=== PATIENT | female | born 1975 | race African-American/Black ===

== ENCOUNTER 2016-11-02 16:01 | Emergency (ER) | payer SELFPAY ==
[~2016-11-02] VITALS: Ht 165.1 cm; Wt 81.1 kg
[2016-11-02 16:50] LABS: HEMATOCRIT 36.6 % (36.0-46.0); MCH 29.3 PG (29.0-34.0); MCHC 32.5 G/DL (30.0-36.0); MCV 90.1 FL (83-99); MEAN PLAT.VOLUME 10.9 uM^3 (9.5-12.4); PLATELET COUNT 277 K/uL (156-360); RBC DIS.WIDTH-CV 12.7 % (11.8-14.6); RED BLOOD COUNT 4.06 M/uL (3.80-5.20); WHITE BLOOD COUNT 10.5 K/uL (4.1-10.2)
[2016-11-02 16:59] LABS: CHLORIDE 106 mEq/L (99-109); POTASSIUM 4.1 mEq/L (3.7-5.4); SODIUM 136 mEq/L (136-147)
[2016-11-02 17:01] LABS: GLUCOSE 94 mg/dL (70-99)
[2016-11-02 17:02] LABS: ANION GAP 10 MEQ/L (2-14)
[2016-11-02 17:03] LABS: TOTAL BILIRUBIN 0.5 mg/dL (0.0-1.0)
[2016-11-02 17:04] LABS: ALKALINE PHOSPHATASE 49 IU/L (3-129)
[2016-11-02 17:06] LABS: UREA NITROGEN (BUN) 4 mg/dL (9-23)
[2016-11-02 17:08] LABS: LIPASE 17 U/L (1.0-51.0)
[2016-11-02 17:14] LABS: GFR ESTIMATE (CALCULATED) > 59 mL/min/
[2016-11-02 17:38] LABS: BILIRUBIN NEGATIVE; BLOOD NEGATIVE; COLOR YELLOW ((YELLOW)); GLUCOSE (STRIP) NEGATIVE; KETONES NEGATIVE; LEUKOCYTES NEGATIVE; NITRITE NEGATIVE; PH, URINE 8.5 (5-8); PROTEIN (STRIP) TRACE; SPECIFIC GRAVITY 1.013 (1.000-1.030)
[2016-11-02 17:39] LABS: ADD MIUA? NO; UCUL ADDED? NO
[2016-11-02 17:50] LABS: QUANTITATIVE HCG 112656.5 MIU/ML
[2016-11-02] MEDS ORDERED: ZOFRAN4 MG PO (19:56)
[2016-11-02] MEDS ORDERED: PRENATAL VITAM1 EA11 PO (19:56)
[2016-11-02 20:16] VITALS: BP 160/86
== END 2016-11-02 20:17 | disposition home or self-care (01) ==
LOC: EME 16:01
DX: O21.9 Vomiting of pregnancy, unspecified (principal); R10.30 Lower abdominal pain, unspecified; R11.0 Nausea; Z3A.08 8 weeks gestation of pregnancy
CPT/HCPCS: 76801; 80053; 81003; 83690; 84702; 85027; 99281; 99284

== ENCOUNTER 2016-11-20 15:41 | Emergency (ER) | payer OTHER ==
[~2016-11-20] VITALS: Ht 157.5 cm; Wt 81.0 kg
[~2016-11-20 15:41] MED LIST: PRENATAL VITAM1 EA11 PO; ZOFRAN4 MG PO
[2016-11-20 17:57] LABS: EOSINOPHIL (%) 1.8 % (0-5); EOSINOPHIL COUNT 0.2 K/uL (0-0.3); HEMATOCRIT 34.2 % (36.0-46.0); IMMATURE GRANULOCYTE (%) 0.5 % (0.0-0.7); IMMATURE GRANULOCYTE COUNT 0.4 K/uL; LYMPHOCYTE COUNT 2.3 K/uL (1.0-2.8); MCH 29.6 PG (29.0-34.0); MCV 89.5 FL (83-99); MEAN PLAT.VOLUME 11.1 uM^3 (9.5-12.4); MONOCYTE (%) 7.4 % (3-12); MONOCYTE COUNT 0.6 K/uL (0-0.8); NEUTROPHIL (%) 63.9 % (45-76); NEUTROPHIL COUNT 5.6 K/uL (1.8-6.4); PLATELET COUNT 250 K/uL (156-360); RBC DIS.WIDTH-CV 12.7 % (11.8-14.6); RBC DIS.WIDTH-SD 40.1 % (39-53); RED BLOOD COUNT 3.82 M/uL (3.80-5.20); WHITE BLOOD COUNT 8.7 K/uL (4.1-10.2)
[2016-11-20 18:11] LABS: ADD MIUA? YES; BILIRUBIN NEGATIVE; BLOOD SMALL; COLOR YELLOW ((YELLOW)); GLUCOSE (STRIP) NEGATIVE; KETONES NEGATIVE; LEUKOCYTES NEGATIVE; NITRITE NEGATIVE; PROTEIN (STRIP) NEGATIVE; SPECIFIC GRAVITY 1.008 (1.000-1.030); UROBILINOGEN 0.2 MG/DL (0.2-1.0)
[2016-11-20 18:48] LABS: BACTERIA 1+ /HPF; CASTS NONE SEEN /LPF; CRYSTALS NONE SEEN; EPITHELIAL CELLS RARE /HPF; MUCUS NONE SEEN /LPF; RED BLOOD CELLS 0-5 /HPF (0-5); UCUL ADDED? NO; WHITE BLOOD CELLS 0-5 /HPF (0-5)
[2016-11-20] MEDS ORDERED: ZOFRAN ODT4 MG PO (19:39)
[2016-11-20 20:05] VITALS: BP 144/78
== END 2016-11-20 20:06 | disposition home or self-care (01) ==
LOC: EME 15:41 → EXP 15:41
PROVIDERS: Nurse Practitioner Family
DX: O20.0 Threatened abortion (principal); O43.891 Other placental disorders, first trimester; O20.8 Other hemorrhage in early pregnancy; Z3A.12 12 weeks gestation of pregnancy
CPT/HCPCS: 76801; 81003; 84702; 85025; 86900; 86901; 99281; 99284

== ENCOUNTER 2017-02-12 01:43 | Outpatient (CLI) | payer OTHER ==
[~2017-02-12] VITALS: Ht 165.1 cm; Wt 72.6 kg
[~2017-02-12 01:43] MED LIST changes: +ZOFRAN ODT4 MG PO
[2017-02-12 02:14] VITALS: BP 120/66
[2017-02-12 03:30] VITALS: BP 126/69
[2017-02-12 06:00] VITALS: BP 116/66
[2017-02-12 08:01] VITALS: BP 115/68
[2017-02-12] MEDS ORDERED: INDOCIN25 MG PO (14:33)
[2017-02-12 15:03] VITALS: BP 132/66
== END 2017-02-12 15:05 | disposition home or self-care (01) ==
LOC: LDRP-OP 01:43 → 2WEST 01:44 → LDRP-OP 07-13 15:23
DX: O60.02 Preterm labor without delivery, second trimester (principal); Z3A.22 22 weeks gestation of pregnancy; O34.12 Maternal care for benign tumor of corpus uteri, second trimester; D25.1 Intramural leiomyoma of uterus; O09.512 Supervision of elderly primigravida, second trimester
CPT/HCPCS: 59025; 76805; 87086; G0378; J7120

== ENCOUNTER 2017-05-04 05:41 | Inpatient (IN) | payer OTHER ==
[~2017-05-04] VITALS: Ht 157.5 cm; Wt 82.3 kg
[2017-05-04] VITALS (17 sets, daily range): BP systolic 118–155; BP diastolic 59–78
[~2017-05-04 05:41] MED LIST changes: +INDOCIN25 MG PO
[2017-05-04 08:21] LABS: EOSINOPHIL (%) 0.5 % (0-5); EOSINOPHIL COUNT 0.1 K/uL (0-0.3); HEMATOCRIT 31.7 % (36.0-46.0); IMMATURE GRANULOCYTE (%) 1.8 % (0.0-0.7); IMMATURE GRANULOCYTE COUNT 0.2 K/uL; INSTRUMENT ABS NEUTROPHIL CT 7.5 K/uL; LYMPHOCYTE COUNT 2.1 K/uL (1.0-2.8); MCH 28.8 PG (29.0-34.0); MCHC 31.5 G/DL (30.0-36.0); MCV 91.4 FL (83-99); MEAN PLAT.VOLUME 12.4 uM^3 (9.5-12.4); MONOCYTE COUNT 0.5 K/uL (0-0.8); NEUTROPHIL (%) 72.5 % (45-76); NEUTROPHIL COUNT 7.5 K/uL (1.8-6.4); NRBC (%) 0.3 /100 WBC (0-0); PLATELET COUNT 186 K/uL (156-360); RBC DIS.WIDTH-CV 14.1 % (11.8-14.6); RBC DIS.WIDTH-SD 46.7 % (39-53); RED BLOOD COUNT 3.47 M/uL (3.80-5.20); WHITE BLOOD COUNT 10.3 K/uL (4.1-10.2)
[2017-05-04 09:36] LABS: DRSB INTERNAL CONTROL PASS; PROBE CHECK PASS; SPECIMEN PROCESSING CONTROL PASS
[2017-05-05] VITALS (10 sets, daily range): BP systolic 102–134; BP diastolic 50–72
[2017-05-05 05:52] LABS: EOSINOPHIL (%) 0.1 % (0-5); HEMATOCRIT 29.6 % (36.0-46.0); IMMATURE GRANULOCYTE (%) 0.9 % (0.0-0.7); IMMATURE GRANULOCYTE COUNT 0.1 K/uL; INSTRUMENT ABS NEUTROPHIL CT 12.9 K/uL; LYMPHOCYTE COUNT 1.7 K/uL (1.0-2.8); MCH 29.1 PG (29.0-34.0); MCHC 31.4 G/DL (30.0-36.0); MCV 92.5 FL (83-99); MEAN PLAT.VOLUME 11.7 uM^3 (9.5-12.4); MONOCYTE (%) 6.3 % (3-12); NEUTROPHIL (%) 81.9 % (45-76); NEUTROPHIL COUNT 12.9 K/uL (1.8-6.4); NRBC (%) 0.2 /100 WBC (0-0); PLATELET COUNT 207 K/uL (156-360); RBC DIS.WIDTH-SD 47.1 % (39-53); WHITE BLOOD COUNT 15.8 K/uL (4.1-10.2)
[2017-05-06 02:14] VITALS: BP 115/64
[2017-05-06 07:11] VITALS: BP 124/74
[2017-05-06 10:32] VITALS: BP 125/59
[2017-05-06 22:37] VITALS: BP 139/77
[2017-05-07 08:33] VITALS: BP 139/68
[2017-05-07 15:00] VITALS: BP 144/79
[2017-05-08 06:59] VITALS: BP 145/79
[2017-05-08] MEDS ORDERED: MOTRIN800 MG PO (11:28)
[2017-05-08] MEDS ORDERED: PERCOCET 5/31 TABLET PO (11:28)
[2017-05-08 11:41] VITALS: BP 133/74
== END 2017-05-08 12:00 | disposition home or self-care (01) | DRG 766 ==
LOC: LDRP-OP 05:41 → 2WEST 05:42 → LDRP-OP 07-13 15:22
PROVIDERS: Obstetrics & Gynecology Gynecology
DX: O42.913 Preterm premature rupture of membranes, unspecified as to length of time between rupture and onset of labor, third trimester (principal); Z3A.35 35 weeks gestation of pregnancy; Z37.0 Single live birth; O76 Abnormality in fetal heart rate and rhythm complicating labor and delivery; O66.40 Failed trial of labor, unspecified; O09.513 Supervision of elderly primigravida, third trimester
CPT/HCPCS: 85025; 86900; 86901; 87081; 87653; J0702; J1100; J1170; J2270; J2274; J2405; J2540; J7120

== ENCOUNTER 2017-11-02 08:24 | Emergency (ER) | payer OTHER ==
[~2017-11-02] VITALS: Ht 157.5 cm; Wt 85.5 kg
[~2017-11-02 08:24] MED LIST changes: +MOTRIN800 MG PO; +PERCOCET 5/31 TABLET PO
[2017-11-02 09:46] LABS: HEMATOCRIT 33.9 % (36.0-46.0); MCH 28.5 PG (29.0-34.0); MCHC 32.4 G/DL (30.0-36.0); MCV 87.8 FL (83-99); PLATELET COUNT 227 K/uL (156-360); RBC DIS.WIDTH-CV 13.2 % (11.8-14.6); RED BLOOD COUNT 3.86 M/uL (3.80-5.20); WHITE BLOOD COUNT 8.6 K/uL (4.1-10.2)
[2017-11-02 09:56] LABS: ALBUMIN 3.6 g/dL (3.2-4.8)
[2017-11-02 09:57] LABS: CHLORIDE 108 mEq/L (99-109); POTASSIUM 5.2 mEq/L (3.7-5.4); SODIUM 139 mEq/L (136-147)
[2017-11-02 09:59] LABS: GLUCOSE 104 mg/dL (70-99); TOTAL PROTEIN 8.1 g/dL (6.4-8.3)
[2017-11-02 10:01] LABS: TOTAL BILIRUBIN 0.5 mg/dL (0.0-1.0)
[2017-11-02 10:02] LABS: ALKALINE PHOSPHATASE 56 IU/L (3-129)
[2017-11-02 10:03] LABS: CREATININE 0.8 mg/dL (0.6-1.3); GFR ESTIMATE (CALCULATED) > 59 mL/min/
[2017-11-02 10:04] LABS: AST (GOT) 45 IU/L (2-34); UREA NITROGEN (BUN) 13 mg/dL (9-23)
[2017-11-02 10:06] LABS: ALT (GPT) 37 IU/L (3-49); LIPASE 14 U/L (1.0-51.0)
[2017-11-02 10:10] LABS: APPEARANCE SL.HAZY ((CLEAR)); BILIRUBIN NEGATIVE; BLOOD SMALL; COLOR YELLOW ((YELLOW)); GLUCOSE (STRIP) NEGATIVE; KETONES NEGATIVE; LEUKOCYTES NEGATIVE; NITRITE NEGATIVE; PROTEIN (STRIP) 30; SPECIFIC GRAVITY 1.029 (1.000-1.030); UROBILINOGEN 0.2 MG/DL (0.2-1.0)
[2017-11-02 10:18] LABS: BACTERIA RARE /HPF; CALCIUM OXALATE CRYSTALS 3+ /HPF; EPITHELIAL CELLS RARE /HPF; MUCUS 1+ /LPF; UCUL ADDED? NO; WHITE BLOOD CELLS 0-5 /HPF (0-5)
[2017-11-02] MEDS ORDERED: NAPROSYN500 MG PO (12:03)
[2017-11-02] MEDS ORDERED: ULTRAM50 MG PO (12:03)
[2017-11-02 12:25] VITALS: BP 154/84
[2017-11-03] MEDS ORDERED: PERCOCET 5/31 TABLET PO (05:34)
== END 2017-11-02 12:28 | disposition home or self-care (01) ==
LOC: EME 08:24
PROVIDERS: Nurse Practitioner Family
DX: R10.9 Unspecified abdominal pain (principal)
CPT/HCPCS: 74177; 80053; 81003; 83690; 85027; J2270; J2405; J7030

== ENCOUNTER 2017-11-03 03:21 | Emergency (ER) | payer OTHER ==
[~2017-11-03] VITALS: Ht 165.1 cm; Wt 86.2 kg
[~2017-11-03 03:21] MED LIST changes: +NAPROSYN500 MG PO; +ULTRAM50 MG PO
[2017-11-03 04:25] LABS: HEMATOCRIT 32.4 % (36.0-46.0); HEMOGLOBIN 10.3 G/DL (11.9-15.5); MCH 28.1 PG (29.0-34.0); MCHC 31.8 G/DL (30.0-36.0); MCV 88.3 FL (83-99); PLATELET COUNT 220 K/uL (156-360); RBC DIS.WIDTH-SD 42.3 % (39-53); RED BLOOD COUNT 3.67 M/uL (3.80-5.20); WHITE BLOOD COUNT 10.4 K/uL (4.1-10.2)
[2017-11-03 04:35] LABS: ALBUMIN 3.5 g/dL (3.2-4.8); CHLORIDE 108 mEq/L (99-109); SODIUM 139 mEq/L (136-147)
[2017-11-03 04:37] LABS: GLUCOSE 130 mg/dL (70-99); TOTAL PROTEIN 6.9 g/dL (6.4-8.3)
[2017-11-03 04:41] LABS: ALKALINE PHOSPHATASE 58 IU/L (3-129); CREATININE 0.7 mg/dL (0.6-1.3); GFR ESTIMATE (CALCULATED) > 59 mL/min/
[2017-11-03 04:42] LABS: UREA NITROGEN (BUN) 8 mg/dL (9-23)
[2017-11-03 04:44] LABS: ALT (GPT) 55 IU/L (3-49)
[2017-11-03 04:51] LABS: QUANTITATIVE HCG < 4.0 MIU/ML
[2017-11-03 04:54] LABS: AST (GOT) 79 IU/L (2-34); POTASSIUM 3.5 mEq/L (3.7-5.4); TOTAL BILIRUBIN 0.7 mg/dL (0.0-1.0)
[2017-11-03] MEDS ORDERED: PERCOCET 5/31 TABLET PO (05:34)
[2017-11-03 05:52] VITALS: BP 121/72
== END 2017-11-03 05:54 | disposition home or self-care (01) ==
LOC: EME 03:21
PROVIDERS: Emergency Medicine
DX: N83.201 Unspecified ovarian cyst, right side (principal); D25.9 Leiomyoma of uterus, unspecified
CPT/HCPCS: 76856; 80053; 84702; 85027; 99281; 99285; J2405; J3010; J7030